=== PATIENT | male | born 1955 | race Two or more races ===

== ENCOUNTER 2018-09-02 23:19 | Inpatient (IN) | payer OTHER ==
[~2018-09-02] VITALS: Ht 182.9 cm; Wt 64.8 kg
[2018-09-02] MEDS ORDERED: NITROGLYCERIN/D5W PMX 250 ML IV PRN (23:42)
[2018-09-02] MEDS: PROPOFOL 100 ML IV PRN (23:50)
[2018-09-03] MEDS ORDERED: LORazepam 2 MG/ML, 1ML IVPush ONE
[2018-09-03] MEDS ORDERED: SODIUM CHLORIDE FLUSH 10ML SYR IVF ONE
[2018-09-03] MEDS ORDERED: SUCCINYLCHOLINE 20 MG/ML, 10ML IVPush ONE
[2018-09-03] MEDS ORDERED: ETOMIDATE 20 MG/10 ML IVPush ONE
--- NOTE | 2018-09-03 | NUR ---
Code cardiac called at 2352 medical laboratory technicians called in by code phone All cath team in route at [phone] Cardiology already aware of STEMI and Dr. Pino in route
[2018-09-03] MEDS ORDERED: ETOMIDATE 20 MG/10 ML ONE (00:01)
[2018-09-03] MEDS ORDERED: SUCCINYLCHOLINE 20 MG/ML, 10ML ONE (00:01)
[2018-09-03] MEDS ORDERED: MIDAZOLAM 1 MG/ML, 5ML ONE (00:01)
[2018-09-03] MEDS ORDERED: PROPOFOL 10 MG/ML, 100ML IV ONE (00:01)
[2018-09-03] MEDS ORDERED: HEPARIN 25,000 UNITS/500ML PMX 500 ML ONE (00:05)
[2018-09-03 00:08] LABS: MEAN CORPUSCULAR HEMOGLOBIN 31.6 pg (27.5-34.5); MEAN CORPUSCULAR HGB CONC 33.9 g/dL (33.2-36.2); MEAN CORPUSCULAR VOLUME 93.4 fL (81-97); MEAN PLATELET VOLUME 8.2 fL (7.4-10.4); RED BLOOD COUNT 4.06 x10^6/uL (4.38-5.82); RED CELL DISTRIBUTION WIDTH 13.6 % (9.4-14.8)
[2018-09-03 00:11] LABS: ALANINE AMINOTRANSFERASE 42 U/L (12-78); ALBUMIN 2.6 g/dL (3.4-5.0); ANION GAP 10 mmol/L (5-15); CALCIUM 7.7 mg/dL (8.5-10.1); CHLORIDE 106 mmol/L (98-107); CREATININE 1.86 mg/dL (0.7-1.3)
[2018-09-03 00:15] LABS: ALKALINE PHOSPHATASE 243 U/L (45-117); BILIRUBIN,TOTAL 0.2 mg/dL (0.2-1.0); PLATELET COUNT 1543 x10^3/uL (130-400); TOTAL PROTEIN 6.2 g/dL (6.4-8.2)
[2018-09-03] MEDS ORDERED: FENTANYL PF 100 MCG/2ML ONE (00:23)
[2018-09-03] MEDS ORDERED: MIDAZOLAM 1 MG/ML, 2ML ONE (00:23)
[2018-09-03] MEDS ORDERED: TICAGRELOR 90 MG TABLET ONE (00:23)
[2018-09-03] MEDS ORDERED: LIDOCAINE 1%, 20ML ONE (00:24)
[2018-09-03] MEDS ORDERED: BIVALIRUDIN 250 MG ONE ×2 (00:24→01:29)
[2018-09-03] MEDS: PROPOFOL 100 ML IV PRN ×2 (00:28→06:15)
[2018-09-03 00:31] LABS: MD YES
[2018-09-03 00:33] LABS: ANISOCYTOSIS 1+; EOS#(MANUAL) 0.42 x10^3/uL (0.0-0.4); EOS% (MANUAL) 3 % (1-7); LYMPH#(MANUAL) 3.95 x10^3/uL (1-3.4); LYMPHS% (MANUAL) 28 % (22-44); MONOS#(MANUAL) 0.85 x10^3/uL (0.3-2.7); MONOS% (MANUAL) 6 % (2-9); SEG#(MANUAL) 8.88 x10^3/uL (1.8-6.8); SEGS% (MANUAL) 63 % (42-75)
[2018-09-03 00:35] LABS: <PLATELET ESTIMATE> INCREASED; LARGE PLATELETS 1+
[2018-09-03] MEDS ORDERED: ONDANSETRON 2MG/ML, 2ML IVPush PRN (01:00)
[2018-09-03] MEDS ORDERED: LABETALOL 5MG/ML, 20ML IVPush PRN (01:00)
[2018-09-03] MEDS ORDERED: ACETAMINOPHEN 325 MG TABLET PO PRN (01:00)
[2018-09-03] MEDS ORDERED: hydrALAzine 20 MG/ML, 1ML IVPush PRN (01:00)
[2018-09-03] MEDS ORDERED: NITROGLYCERIN 0.4 MG BOTTLE (25 TABS) SL PRN (01:00)
[2018-09-03] MEDS ORDERED: morphine SULFATE 10 MG/ML, 1ML IVPush PRN (01:00)
[2018-09-03] MEDS ORDERED: ONDANSETRON ODT 4 MG PO PRN (01:00)
[2018-09-03] MEDS ORDERED: OXYcodone IR 5MG TABLET PO PRN (01:00)
[2018-09-03] MEDS ORDERED: POLYETHYLENE GLYCOL 17 GM PACKET PO PRN (01:00)
[2018-09-03] MEDS ORDERED: BISACODYL 10 MG SUPP PR PRN (01:00)
[2018-09-03] MEDS ORDERED: DOCUSATE 100 MG CAPSULE PO PRN (01:00)
[2018-09-03] MEDS ORDERED: MIDAZOLAM 1 MG/ML, 5ML IVPush ONE ×2 (01:00)
[2018-09-03] MEDS ORDERED: PROMETHAZINE 25 MG/ML, 1ML IM PRN (01:00)
--- NOTE | 2018-09-03 01:06 | NUR ---
LATE ENTRY: 2324: PT ARRIVED FROM [facility] FOR STEMI. ENROUTE, PT BECAME VERY ANXIOUS AND STATED HE COULD NOT BREATH. UPON ARRIVAL, PT IS PULLING AT MONITORS AND ROCKING BACK AND FORTH IN [facility]--ATTEMPTING TO CRAWL OUT OF [facility]. PT STATING MULTIPLE TIMES "JUST INTUBATE ME, I CAN'T BREATH". PT MEDICATED WITH ATIVAN PER ERP VERBAL ORDER. ERP AT BEDSIDE WITH US TO BORA. PRESENTS WITH NITRO DRIP INFUSING @ 50MCG/MIN. INTITIALLY HAD HEPARIN INFUSING WELL BUT IV BLEW SO PER ERP, HEPARIN TO BE HELD UNTIL FURTHER IV ACCESS CAN BE OBTAINED BUT NITRO NEEDS TO CONTINUE INFUSING--ERP REQUESTING TO INCREASE TO 75MCG/MIN. 2336: NITRO DRIP INCREASED PER ERP REQUEST--VERIFIED DOSE. 2340:PT REMAINS AGITATED. UNABLE TO OBTAIN ANY ASSESSMENT. RSI INTUBATION COMPLETED BY ERP. TUBE 24 @LIP. XRAY WAITING AT BEDSIDE. 2343: NITRO DRIP INCREASED PER ERP TO 100 MCG/MIN--VERIFIED DOSE WITH ERP PRIOR TO INCREASE. Addendum: 09/03/18 at 0118 by [facility] LATE ENTRY: 2324: PT ARRIVED FROM [facility] FOR STEMI. PT RECEIVED TNK AND HEPARIN MERCHANT MILLER. PER ERP AND DR LOPEZ, POC WAS TO REPEAT EKG UPON ARRIVAL TO ER AND ASSESS IF LAND ACQUISITION ANALYST IS NEEDED. NO CODE CARDIAC TO BE CALLED UPON INITIAL ARRIVAL. ENROUTE, PT BECAME VERY ANXIOUS AND STATED HE COULD NOT BREATH. UPON ARRIVAL IN ER, PT IS PULLING AT MONITORS AND ROCKING BACK AND FORTH IN [place]--ATTEMPTING TO CRAWL OUT OF [facility]. PT STATING MULTIPLE TIMES "JUST INTUBATE ME, I CAN'T BREATH". PT MEDICATED WITH ATIVAN PER ERP VERBAL ORDER. ERP AT BEDSIDE WITH US MACHINE TO BORA. PRESENTS WITH NITRO DRIP INFUSING @ 50MCG/MIN. INTITIALLY HAD HEPARIN INFUSING WELL BUT IV BLEW SO PER ERP, HEPARIN TO BE HELD UNTIL FURTHER IV ACCESS CAN BE OBTAINED BUT NITRO NEEDS TO CONTINUE INFUSING--ERP REQUESTING TO INCREASE TO 75MCG/MIN. 2336: NITRO DRIP INCREASED PER ERP REQUEST--VERIFIED DOSE. 2340:PT REMAINS AGITATED. UNABLE TO OBTAIN ANY ASSESSMENT. RSI INTUBATION COMPLETED BY ERP. TUBE 24 @LIP. XRAY WAITING AT BEDSIDE. AWAITING ORDERS FOR HEPARIN DRIP. 2343: NITRO DRIP INCREASED PER ERP TO 100 MCG/MIN--VERIFIED DOSE WITH ERP PRIOR TO INCREASE. 0010: ERP AWARE OF PT VS--NITRO DRIP DECREASED.
--- NOTE | 2018-09-03 01:13 | NUR ---
LATE ENTRY: 2352: CODE CARDIAC CALLED AND NOTIFIED. AWAITING TRANSFER TO AREA REPRESENTATIVE. PT BEING PREPPED PER PROTOCOLS. 0000: NG PLACED. CLOTHING REMOVED. UPPER AND LOWER DENTURES, PANTS, AND BELT GIVEN TO AT BEDSIDE. PT COUGHING AND FIGHTING VENT--ORDER FOR VERSED RECEIVED. 0025: AWAITING RESP THERAPIST FOR TRANSPORT TO AREA REPRESENTATIVE. 0040:PT TRANSFERRED TO AREA REPRESENTATIVE WITH RN, RESP, AND TECH ESCORT.
[2018-09-03] MEDS: BIVALIRUDIN 250 MG in DEXTROSE 5% 100 ML IV SCH ×2 (01:17→03:20)
[2018-09-03] MEDS ORDERED: MIDAZOLAM 1 MG/ML, 2ML IVPush ONE ×2 (01:30)
[2018-09-03 01:41] LABS: FREE T4 (FREE THYROXINE) 0.98 ng/dL (0.76-1.46); THYROID STIMULATING HORMONE 13.7 mIU/L (0.358-3.740)
[2018-09-03 01:45] LABS: INTERNATIONAL NORMALIZED RATIO 1.01 (0.93-1.1); PROTHROMBIN TIME 10.7 Seconds (9.6-11.5)
[2018-09-03 02:08] LABS: HEMOGLOBIN A1C 12.6 % (4.2-6.3)
[2018-09-03] MEDS ORDERED: DOPAMINE/D5W PMX 250 ML IV PRN (04:38)
[2018-09-03] MEDS ORDERED: PROPOFOL 100 ML IV PRN (04:38)
[2018-09-03 04:42] LABS: ALANINE AMINOTRANSFERASE 37 U/L (12-78); ALBUMIN 2.4 g/dL (3.4-5.0); ANION GAP 8 mmol/L (5-15); CALCIUM 8.1 mg/dL (8.5-10.1); CHLORIDE 109 mmol/L (98-107); CHOLESTEROL, TOTAL 169 mg/dL (140-239); CREATININE 1.84 mg/dL (0.7-1.3); MEAN CORPUSCULAR HEMOGLOBIN 31.8 pg (27.5-34.5); MEAN CORPUSCULAR HGB CONC 34.4 g/dL (33.2-36.2); MEAN CORPUSCULAR VOLUME 92.3 fL (81-97); MEAN PLATELET VOLUME 7.9 fL (7.4-10.4); RED BLOOD COUNT 3.82 x10^6/uL (4.38-5.82); RED CELL DISTRIBUTION WIDTH 13.5 % (9.4-14.8)
[2018-09-03 04:44] LABS: ALKALINE PHOSPHATASE 221 U/L (45-117); BILIRUBIN,TOTAL 0.4 mg/dL (0.2-1.0); CHOL/HDL RATIO 3.2; HDL CHOL % 31 % (26-37); HDL CHOLESTEROL (DIRECT) 53 mg/dL (40-60); LDL CHOLESTEROL,CALCULATED 96 mg/dL (54-169); LDL/HDL RATIO 1.8 (0.5-3.0); TOTAL PROTEIN 5.9 g/dL (6.4-8.2); TRIGLYCERIDES 101 mg/dL (50-200); VLDL CHOLESTEROL 20 mg/dL (0-25)
[2018-09-03] MEDS ORDERED: LACTULOSE 20 GM/30 ML UDC NG PRN (05:00)
[2018-09-03] MEDS ORDERED: SENNA/DOCUSATE TABLET NG PRN (05:00)
[2018-09-03] MEDS ORDERED: PHARMACY MAY ADJ FOR RENAL FX MC SCH (05:00)
[2018-09-03] MEDS ORDERED: LIDOCAINE-MPF 1%, 2ML ENDO PRN (05:00)
[2018-09-03] MEDS: ALBUTEROL/IPRATROPIUM 2.5MG/0.5MG, 3 ML INLINE SCH ×3 (05:00→13:41)
[2018-09-03] MEDS ORDERED: DEXTROSE 50%, 50ML SYRINGE IVPush PRN (05:00)
[2018-09-03] MEDS ORDERED: DEXTROSE 4 GM TAB.CHEW PO PRN (05:00)
[2018-09-03] MEDS ORDERED: FENTANYL PF 100 MCG/2ML IVPush PRN (05:00)
[2018-09-03] MEDS ORDERED: GLUCAGON 1 MG IM PRN (05:00)
[2018-09-03] MEDS ORDERED: SENNOSIDES 8.8 MG/5 ML ORAL SOL NG PRN (05:00)
[2018-09-03 05:14] LABS: PLATELET COUNT 1351 x10^3/uL (130-400)
[2018-09-03 05:24] LABS: TRIGLYCERIDES 101 mg/dL (50-200)
[2018-09-03 05:50] LABS: BASOPHILS # (AUTO) 0.05 x10^3/uL (0-0.1); BASOPHILS % (AUTO) 0 % (0-1); EOSINOPHILS # (AUTO) 0.18 x10^3/uL (0-0.4); EOSINOPHILS % (AUTO) 1 % (1-7); LYMPHOCYTES # (AUTO) 1.45 x10^3/uL (1-3.4); LYMPHOCYTES % (AUTO) 11 % (22-44); MD SCAN; MONOCYTES # (AUTO) 0.72 x10^3/uL (0.2-0.8); MONOCYTES % (AUTO) 6 % (2-9); NEUTROPHILS # (AUTO) 10.83 x10^3/uL (1.8-6.8); NEUTROPHILS % (AUTO) 82 % (42-75)
[2018-09-03] MEDS ORDERED: ASPIRIN 325 MG TABLET EC PO SCH (06:00)
[2018-09-03] MEDS: NICOTINE 7 MG/24 HR PATCH.TD24 TD SCH (06:29)
[2018-09-03] MEDS: INSULIN LISPRO 100 UNITS/ML, PEN SQ-INSULIN SCH ×4 (07:00→21:44)
[2018-09-03 07:49] VITALS: BP 118/68
[2018-09-03 08:40] LABS: MICROSCOPIC INDICATED
[2018-09-03] MEDS: ASPIRIN 81 MG TABLET EC PO SCH (08:53)
[2018-09-03] MEDS: SODIUM CHLORIDE FLUSH 10ML SYR IVF SCH ×2 (08:54→21:31)
[2018-09-03] MEDS: TICAGRELOR 90 MG TABLET PO SCH ×2 (08:54→21:31)
[2018-09-03 08:55] LABS: CULTURE INDICATED? NO
[2018-09-03] MEDS ORDERED: BUDESONIDE 0.5 MG/2 ML INHA NPPB SCH (09:15)
--- NOTE | 2018-09-03 12:05 | NUR ---
TF GOAL: w/ propofol: PROMOTE @ 65ML/HR off propofol: PROMOTE @ 75ML/HR
[2018-09-03] MEDS ORDERED: ALBUTEROL/IPRATROPIUM 2.5MG/0.5MG, 3 ML NPPB PRN (17:30)
[2018-09-04] MEDS: NICOTINE 7 MG/24 HR PATCH.TD24 TD SCH (01:09)
[2018-09-04 04:00] VITALS: BP 143/78
[2018-09-04 04:38] LABS: ALBUMIN 2.2 g/dL (3.4-5.0); ANION GAP 6 mmol/L (5-15); CALCIUM 8.4 mg/dL (8.5-10.1); CHLORIDE 111 mmol/L (98-107)
[2018-09-04 04:40] LABS: MEAN CORPUSCULAR HEMOGLOBIN 31.6 pg (27.5-34.5); MEAN CORPUSCULAR HGB CONC 33.7 g/dL (33.2-36.2); MEAN CORPUSCULAR VOLUME 93.9 fL (81-97); RED BLOOD COUNT 4.06 x10^6/uL (4.38-5.82); RED CELL DISTRIBUTION WIDTH 13.6 % (9.4-14.8)
[2018-09-04 04:42] LABS: ALANINE AMINOTRANSFERASE 24 U/L (12-78); ALKALINE PHOSPHATASE 197 U/L (45-117); BILIRUBIN,TOTAL 0.4 mg/dL (0.2-1.0); CREATININE 1.69 mg/dL (0.7-1.3); TOTAL PROTEIN 5.6 g/dL (6.4-8.2)
[2018-09-04 05:22] LABS: PLATELET COUNT 1058 x10^3/uL (130-400)
[2018-09-04 05:23] LABS: BASOPHILS # (AUTO) 0.03 x10^3/uL (0-0.1); BASOPHILS % (AUTO) 0 % (0-1); EOSINOPHILS # (AUTO) 0.37 x10^3/uL (0-0.4); EOSINOPHILS % (AUTO) 3 % (1-7); LYMPHOCYTES # (AUTO) 0.78 x10^3/uL (1-3.4); LYMPHOCYTES % (AUTO) 7 % (22-44); MD SCAN; MONOCYTES # (AUTO) 0.59 x10^3/uL (0.2-0.8); MONOCYTES % (AUTO) 5 % (2-9); NEUTROPHILS # (AUTO) 9.46 x10^3/uL (1.8-6.8); NEUTROPHILS % (AUTO) 84 % (42-75)
[2018-09-04] MEDS: INSULIN LISPRO 100 UNITS/ML, PEN SQ-INSULIN SCH ×4 (06:00→21:24)
[2018-09-04] MEDS: BUDESONIDE 0.5 MG/2 ML INHA NPPB SCH ×2 (09:05→20:30)
[2018-09-04] MEDS: ASPIRIN 81 MG TABLET EC PO SCH (09:14)
[2018-09-04] MEDS: TICAGRELOR 90 MG TABLET PO SCH ×2 (09:14→21:24)
[2018-09-04] MEDS: AMPICILLIN/SULBACTAM 3 GM in SODIUM CHLORIDE 0.9% 100 ML IV SCH ×3 (09:15→21:25)
[2018-09-04] MEDS: SODIUM CHLORIDE FLUSH 10ML SYR IVF SCH ×2 (09:15→21:25)
[2018-09-04] MEDS ORDERED: FUROSEMIDE 20 MG/2 ML ONE (09:54)
[2018-09-04] MEDS ORDERED: FUROSEMIDE 20 MG/2 ML IV ONE (10:00)
[2018-09-04] MEDS: LEVOTHYROXINE 50 MCG TABLET PO SCH (10:01)
[2018-09-04 13:25] VITALS: BP 167/52
[2018-09-04 21:11] VITALS: BP 166/82
[2018-09-04] MEDS: ATORVASTATIN 80 MG TABLET PO SCH (21:24)
[2018-09-05 03:23] VITALS: BP 151/74
[2018-09-05] MEDS: AMPICILLIN/SULBACTAM 3 GM in SODIUM CHLORIDE 0.9% 100 ML IV SCH ×2 (03:25→09:16)
[2018-09-05] MEDS: NICOTINE 7 MG/24 HR PATCH.TD24 TD SCH (03:25)
[2018-09-05] MEDS: LEVOTHYROXINE 50 MCG TABLET PO SCH (06:03)
[2018-09-05] MEDS: INSULIN LISPRO 100 UNITS/ML, PEN SQ-INSULIN SCH ×4 (06:04→21:34)
[2018-09-05 06:59] LABS: MEAN CORPUSCULAR HEMOGLOBIN 31.8 pg (27.5-34.5); MEAN CORPUSCULAR HGB CONC 33.7 g/dL (33.2-36.2); MEAN CORPUSCULAR VOLUME 94.3 fL (81-97); MEAN PLATELET VOLUME 8.2 fL (7.4-10.4); RED BLOOD COUNT 4.07 x10^6/uL (4.38-5.82); RED CELL DISTRIBUTION WIDTH 13.6 % (9.4-14.8)
[2018-09-05 07:05] LABS: ANION GAP 7 mmol/L (5-15); CALCIUM 7.7 mg/dL (8.5-10.1); CHLORIDE 109 mmol/L (98-107)
[2018-09-05 07:12] LABS: CREATININE 1.92 mg/dL (0.7-1.3)
[2018-09-05 07:26] VITALS: BP 153/74
[2018-09-05 07:29] LABS: PLATELET COUNT 1137 x10^3/uL (130-400)
[2018-09-05 07:48] LABS: BASOPHILS # (AUTO) 0.02 x10^3/uL (0-0.1); BASOPHILS % (AUTO) 0 % (0-1); EOSINOPHILS # (AUTO) 0.77 x10^3/uL (0-0.4); EOSINOPHILS % (AUTO) 8 % (1-7); LYMPHOCYTES # (AUTO) 0.72 x10^3/uL (1-3.4); LYMPHOCYTES % (AUTO) 7 % (22-44); MD SCAN; MONOCYTES # (AUTO) 0.61 x10^3/uL (0.2-0.8); MONOCYTES % (AUTO) 6 % (2-9); NEUTROPHILS # (AUTO) 7.76 x10^3/uL (1.8-6.8); NEUTROPHILS % (AUTO) 79 % (42-75)
[2018-09-05] MEDS: BUDESONIDE 0.5 MG/2 ML INHA NPPB SCH ×2 (09:00→23:14)
[2018-09-05] MEDS: ASPIRIN 81 MG TABLET EC PO SCH (09:16)
[2018-09-05] MEDS: TICAGRELOR 90 MG TABLET PO SCH ×2 (09:16→21:34)
[2018-09-05] MEDS: SODIUM CHLORIDE FLUSH 10ML SYR IVF SCH ×2 (09:16→21:33)
[2018-09-05] MEDS: CARVEDILOL 3.125 MG TABLET PO SCH ×2 (09:18→18:02)
[2018-09-05] MEDS ORDERED: muscle relaxer PO (13:06)
[2018-09-05] MEDS ORDERED: IBUP200C8 PO (13:06)
[2018-09-05] MEDS ORDERED: ASPI-650 PO (13:06)
[2018-09-05] MEDS ORDERED: unknown BP med PO (13:06)
[2018-09-05] MEDS ORDERED: INSU100V8 SQ (13:06)
[2018-09-05] MEDS: CEFTRIAXONE PMX 2GM/50ML 50 ML IV SCH (13:23)
[2018-09-05] MEDS: DOXYCYCLINE 100 MG in DEXTROSE 5% 250 ML IV SCH (14:22)
[2018-09-05] MEDS: HEPARIN 5,000 UNITS/ML, 1ML SQ SCH ×2 (14:30→21:33)
[2018-09-05 14:47] VITALS: BP 146/74
[2018-09-05 19:13] VITALS: BP 170/85
[2018-09-05] MEDS: INSULIN GLARGINE 100 UNITS/ML, PEN SQ-INSULIN SCH (21:34)
[2018-09-05] MEDS: ATORVASTATIN 80 MG TABLET PO SCH (21:34)
[2018-09-06] VITALS (7 sets, daily range): BP systolic 129–186; BP diastolic 61–99
[2018-09-06] MEDS: NICOTINE 7 MG/24 HR PATCH.TD24 TD SCH (02:49)
[2018-09-06] MEDS: DOXYCYCLINE 100 MG in DEXTROSE 5% 250 ML IV SCH ×2 (02:49→14:35)
[2018-09-06 05:23] LABS: MEAN CORPUSCULAR HEMOGLOBIN 31.7 pg (27.5-34.5); MEAN CORPUSCULAR VOLUME 93.1 fL (81-97); RED BLOOD COUNT 4.05 x10^6/uL (4.38-5.82); RED CELL DISTRIBUTION WIDTH 13.2 % (9.4-14.8)
[2018-09-06 05:25] LABS: PLATELET COUNT 1247 x10^3/uL (130-400)
[2018-09-06 05:36] LABS: ANION GAP 6 mmol/L (5-15); CALCIUM 7.8 mg/dL (8.5-10.1); CHLORIDE 109 mmol/L (98-107); CREATININE 1.66 mg/dL (0.7-1.3); TRIGLYCERIDES 104 mg/dL (50-200)
[2018-09-06 05:46] LABS: BASOPHILS # (AUTO) 0.04 x10^3/uL (0-0.1); BASOPHILS % (AUTO) 1 % (0-1); EOSINOPHILS # (AUTO) 0.59 x10^3/uL (0-0.4); EOSINOPHILS % (AUTO) 6 % (1-7); LYMPHOCYTES # (AUTO) 0.89 x10^3/uL (1-3.4); LYMPHOCYTES % (AUTO) 9 % (22-44); MD SCAN; MONOCYTES % (AUTO) 7 % (2-9); NEUTROPHILS # (AUTO) 7.42 x10^3/uL (1.8-6.8); NEUTROPHILS % (AUTO) 77 % (42-75)
[2018-09-06] MEDS: INSULIN LISPRO 100 UNITS/ML, PEN SQ-INSULIN SCH ×4 (06:00→21:08)
[2018-09-06] MEDS: LEVOTHYROXINE 50 MCG TABLET PO SCH (06:31)
[2018-09-06] MEDS: CARVEDILOL 3.125 MG TABLET PO SCH (06:31)
[2018-09-06] MEDS: HEPARIN 5,000 UNITS/ML, 1ML SQ SCH ×3 (06:34→21:09)
[2018-09-06] MEDS: TICAGRELOR 90 MG TABLET PO SCH ×2 (09:00→21:08)
[2018-09-06] MEDS: SODIUM CHLORIDE FLUSH 10ML SYR IVF SCH ×2 (09:00→21:08)
[2018-09-06] MEDS ORDERED: FUROSEMIDE 40 MG/4 ML IV ONE (09:30)
[2018-09-06] MEDS: CARVEDILOL 6.25 MG TABLET PO SCH ×2 (09:30→17:05)
[2018-09-06] MEDS: ASPIRIN 81 MG TABLET EC PO SCH (09:34)
[2018-09-06] MEDS: LISINOPRIL 5 MG TABLET PO SCH (09:53)
[2018-09-06] MEDS: SPIRONOLACTONE 25 MG TABLET PO SCH (09:54)
[2018-09-06] MEDS: CEFTRIAXONE PMX 2GM/50ML 50 ML IV SCH (12:55)
[2018-09-06] MEDS: BUDESONIDE 0.5 MG/2 ML INHA NPPB SCH ×2 (14:30→21:00)
[2018-09-06] MEDS: ATORVASTATIN 80 MG TABLET PO SCH (21:08)
[2018-09-06] MEDS: INSULIN GLARGINE 100 UNITS/ML, PEN SQ-INSULIN SCH (21:09)
[2018-09-07 01:25] VITALS: BP 132/70
[2018-09-07] MEDS: NICOTINE 7 MG/24 HR PATCH.TD24 TD SCH (03:11)
[2018-09-07] MEDS: DOXYCYCLINE 100 MG in DEXTROSE 5% 250 ML IV SCH ×2 (03:11→14:00)
[2018-09-07 06:20] LABS: MEAN CORPUSCULAR HEMOGLOBIN 31.5 pg (27.5-34.5); MEAN CORPUSCULAR HGB CONC 33.6 g/dL (33.2-36.2); MEAN CORPUSCULAR VOLUME 93.8 fL (81-97); MEAN PLATELET VOLUME 7.8 fL (7.4-10.4); RED BLOOD COUNT 4.17 x10^6/uL (4.38-5.82); RED CELL DISTRIBUTION WIDTH 13.4 % (9.4-14.8)
[2018-09-07 06:22] LABS: PLATELET COUNT 1316 x10^3/uL (130-400)
[2018-09-07 06:30] LABS: ANION GAP 7 mmol/L (5-15); CALCIUM 8.1 mg/dL (8.5-10.1); CHLORIDE 108 mmol/L (98-107)
[2018-09-07] MEDS: CARVEDILOL 6.25 MG TABLET PO SCH ×2 (06:40→18:16)
[2018-09-07] MEDS: LEVOTHYROXINE 50 MCG TABLET PO SCH (06:40)
[2018-09-07] MEDS: HEPARIN 5,000 UNITS/ML, 1ML SQ SCH ×3 (06:40→22:41)
[2018-09-07] MEDS: INSULIN LISPRO 100 UNITS/ML, PEN SQ-INSULIN SCH ×4 (06:46→21:00)
[2018-09-07 06:51] VITALS: BP_SYST 146; BP_SYST 159; BP_DIAS 76; BP_DIAS 81
[2018-09-07 07:40] LABS: BASOPHILS # (AUTO) 0.04 x10^3/uL (0-0.1); BASOPHILS % (AUTO) 0 % (0-1); EOSINOPHILS # (AUTO) 0.73 x10^3/uL (0-0.4); EOSINOPHILS % (AUTO) 6 % (1-7); LYMPHOCYTES # (AUTO) 0.87 x10^3/uL (1-3.4); LYMPHOCYTES % (AUTO) 8 % (22-44); MD SCAN; MONOCYTES # (AUTO) 0.67 x10^3/uL (0.2-0.8); MONOCYTES % (AUTO) 6 % (2-9); NEUTROPHILS # (AUTO) 9.18 x10^3/uL (1.8-6.8); NEUTROPHILS % (AUTO) 80 % (42-75)
[2018-09-07] MEDS: BUDESONIDE 0.5 MG/2 ML INHA NPPB SCH ×2 (07:46→20:45)
[2018-09-07] MEDS: ASPIRIN 81 MG TABLET EC PO SCH (08:30)
[2018-09-07] MEDS: SPIRONOLACTONE 25 MG TABLET PO SCH (08:30)
[2018-09-07] MEDS: LISINOPRIL 5 MG TABLET PO SCH (08:30)
[2018-09-07] MEDS: SODIUM CHLORIDE FLUSH 10ML SYR IVF SCH ×2 (08:30→22:42)
[2018-09-07] MEDS: TICAGRELOR 90 MG TABLET PO SCH ×2 (10:44→22:41)
[2018-09-07] MEDS: POTASSIUM CHLORIDE 10 MEQ TABLET.ER PO SCH (10:44)
[2018-09-07] MEDS: FUROSEMIDE 40 MG TABLET PO SCH (10:44)
[2018-09-07 12:45] VITALS: BP 161/76
[2018-09-07] MEDS: CEFTRIAXONE PMX 2GM/50ML 50 ML IV SCH (13:16)
[2018-09-07 20:46] VITALS: BP 137/72
[2018-09-07] MEDS: ATORVASTATIN 80 MG TABLET PO SCH (22:41)
[2018-09-08] MEDS ORDERED: INSULIN LISPRO 100 UNITS/ML, PEN SQ-INSULIN SCH (00:30)
[2018-09-08] MEDS: INSULIN GLARGINE 100 UNITS/ML, PEN SQ-INSULIN SCH (00:34)
[2018-09-08] MEDS: DOXYCYCLINE 100 MG in DEXTROSE 5% 250 ML IV SCH ×2 (01:09→14:25)
[2018-09-08] MEDS: NICOTINE 7 MG/24 HR PATCH.TD24 TD SCH (01:09)
[2018-09-08 04:54] VITALS: BP 153/69
[2018-09-08] MEDS: INSULIN LISPRO 100 UNITS/ML, PEN SQ-INSULIN SCH ×3 (06:00→16:00)
[2018-09-08 06:02] LABS: MEAN CORPUSCULAR HEMOGLOBIN 31.3 pg (27.5-34.5); MEAN CORPUSCULAR HGB CONC 33.7 g/dL (33.2-36.2); MEAN CORPUSCULAR VOLUME 92.9 fL (81-97); RED BLOOD COUNT 4.21 x10^6/uL (4.38-5.82); RED CELL DISTRIBUTION WIDTH 13.3 % (9.4-14.8)
[2018-09-08 06:04] LABS: PLATELET COUNT 1325 x10^3/uL (130-400)
[2018-09-08 06:14] LABS: ANION GAP 9 mmol/L (5-15); CALCIUM 8.3 mg/dL (8.5-10.1); CHLORIDE 109 mmol/L (98-107); CREATININE 1.86 mg/dL (0.7-1.3)
[2018-09-08] MEDS: HEPARIN 5,000 UNITS/ML, 1ML SQ SCH ×2 (06:21→14:25)
[2018-09-08] MEDS: LEVOTHYROXINE 50 MCG TABLET PO SCH (06:22)
[2018-09-08] MEDS: CARVEDILOL 6.25 MG TABLET PO SCH (06:22)
[2018-09-08 06:28] LABS: BASOPHILS # (AUTO) 0.06 x10^3/uL (0-0.1); BASOPHILS % (AUTO) 1 % (0-1); EOSINOPHILS # (AUTO) 0.88 x10^3/uL (0-0.4); EOSINOPHILS % (AUTO) 9 % (1-7); LYMPHOCYTES # (AUTO) 1.52 x10^3/uL (1-3.4); LYMPHOCYTES % (AUTO) 15 % (22-44); MD SCAN; MONOCYTES # (AUTO) 0.85 x10^3/uL (0.2-0.8); MONOCYTES % (AUTO) 8 % (2-9); NEUTROPHILS # (AUTO) 6.99 x10^3/uL (1.8-6.8); NEUTROPHILS % (AUTO) 68 % (42-75)
[2018-09-08 07:24] VITALS: BP 141/69
[2018-09-08] MEDS: POTASSIUM CHLORIDE 10 MEQ TABLET.ER PO SCH (08:49)
[2018-09-08] MEDS: FUROSEMIDE 40 MG TABLET PO SCH (08:50)
[2018-09-08] MEDS: LISINOPRIL 5 MG TABLET PO SCH (08:50)
[2018-09-08] MEDS: SPIRONOLACTONE 25 MG TABLET PO SCH (08:50)
[2018-09-08] MEDS: ASPIRIN 81 MG TABLET EC PO SCH (08:50)
[2018-09-08] MEDS: SODIUM CHLORIDE FLUSH 10ML SYR IVF SCH (08:53)
[2018-09-08] MEDS: TICAGRELOR 90 MG TABLET PO SCH (08:57)
[2018-09-08] MEDS: BUDESONIDE 0.5 MG/2 ML INHA NPPB SCH (09:00)
[2018-09-08] MEDS ORDERED: PRASUGREL 10 MG TABLET PO ONE (10:30)
[2018-09-08 12:34] VITALS: BP 136/75
[2018-09-08] MEDS: CEFTRIAXONE PMX 2GM/50ML 50 ML IV SCH (13:33)
[2018-09-08] MEDS ORDERED: PRAS10TA4 PO (15:09)
[2018-09-08] MEDS ORDERED: CARV6.2512 PO (15:09)
[2018-09-08] MEDS ORDERED: DOXY100T10 PO (15:09)
[2018-09-08] MEDS ORDERED: FURO40TA6 PO (15:09)
[2018-09-08] MEDS ORDERED: ASPI81TA45 PO (15:09)
[2018-09-08] MEDS ORDERED: INSU100I13 SQ ×2 (15:09)
[2018-09-08] MEDS ORDERED: CEFD300C37 PO (15:09)
[2018-09-08] MEDS ORDERED: LEVO25TA2 PO (15:09)
[2018-09-08] MEDS ORDERED: LISI5TAB7 PO (15:09)
[2018-09-08] MEDS ORDERED: IPRA4AER INH ×2 (15:09)
[2018-09-08] MEDS ORDERED: INSU100C SQ-INSULIN (15:09)
[2018-09-08] MEDS ORDERED: POTA10TA5 PO (15:09)
[2018-09-08] MEDS ORDERED: SPIR25TA PO (15:09)
[2018-09-08] MEDS ORDERED: ATOR-2 PO (15:09)
[2018-09-08] MEDS ORDERED: IPRA3AMP30 NPPB (15:48)
[2018-09-08] MEDS ORDERED: INSU100I28 SQ (15:48)
[2018-09-08] MEDS ORDERED: INSULIN GLARGINE 100 UNITS/ML, PEN SQ-INSULIN SCH (21:00)
[2018-09-09] MEDS ORDERED: PRASUGREL 10 MG TABLET PO SCH (09:00)
== END 2018-09-08 17:28 | disposition home or self-care (01) | DRG 853 ==
LOC: ED 09-03 → EDIP 09-03 00:29 → ICU 09-03 01:41 → 5SO 09-04 11:59 → DCLOUNGE 09-08 17:05
PROVIDERS: ADMIT Internal Medicine; ATTEND Internal Medicine
PROC: 5A1935Z Respiratory Ventilation, Less than 24 Consecutive Hours (ICD-10-PCS; 2018-09-02)
PROC: 0BH17EZ Insertion of Endotracheal Airway into Trachea, Via Natural or Artificial Opening (ICD-10-PCS; 2018-09-02)
PROC: 027035Z Dilation of Coronary Artery, One Artery with Two Drug-eluting Intraluminal Devices, Percutaneous Approach (ICD-10-PCS; principal; 2018-09-03)
PROC: 4A023N7 Measurement of Cardiac Sampling and Pressure, Left Heart, Percutaneous Approach (ICD-10-PCS; 2018-09-03)
PROC: B2111ZZ Fluoroscopy of Multiple Coronary Arteries using Low Osmolar Contrast (ICD-10-PCS; 2018-09-03)
PROC: 0T9B70Z Drainage of Bladder with Drainage Device, Via Natural or Artificial Opening (ICD-10-PCS; 2018-09-03)
DX: A41.9 Sepsis, unspecified organism (principal); I21.09 ST elevation (STEMI) myocardial infarction involving other coronary artery of anterior wall; I50.21 Acute systolic (congestive) heart failure; J96.01 Acute respiratory failure with hypoxia; J96.02 Acute respiratory failure with hypercapnia; N17.0 Acute kidney failure with tubular necrosis; R57.0 Cardiogenic shock; J15.0 Pneumonia due to Klebsiella pneumoniae; E44.0 Moderate protein-calorie malnutrition; I13.0 Hypertensive heart and chronic kidney disease with heart failure and stage 1 through stage 4 chronic kidney disease, or unspecified chronic kidney disease; I16.9 Hypertensive crisis, unspecified; J44.0 Chronic obstructive pulmonary disease with (acute) lower respiratory infection; Z99.11 Dependence on respirator [ventilator] status; Z68.1 Body mass index [BMI] 19.9 or less, adult; D69.6 Thrombocytopenia, unspecified; E03.9 Hypothyroidism, unspecified; E11.22 Type 2 diabetes mellitus with diabetic chronic kidney disease; E11.51 Type 2 diabetes mellitus with diabetic peripheral angiopathy without gangrene; E11.65 Type 2 diabetes mellitus with hyperglycemia; E78.00 Pure hypercholesterolemia, unspecified; E78.5 Hyperlipidemia, unspecified; F17.210 Nicotine dependence, cigarettes, uncomplicated; I25.10 Atherosclerotic heart disease of native coronary artery without angina pectoris; I25.5 Ischemic cardiomyopathy; N18.9 Chronic kidney disease, unspecified; I25.2 Old myocardial infarction; Z83.3 Family history of diabetes mellitus; Z86.73 Personal history of transient ischemic attack (TIA), and cerebral infarction without residual deficits; Z95.5 Presence of coronary angioplasty implant and graft; Z79.899 Other long term (current) drug therapy; Z92.82 Status post administration of tPA (rtPA) in a different facility within the last 24 hours prior to admission to current facility
CPT/HCPCS: 31500; 36415; 36600; 93454; 99291; 99292; J7620; J7626; 0399T; 71045; 80048; 80053; 80061; 81001; 82803; 82947; 82962; 83036; 83605; 83735; 83880; 84439; 84443; 84478; 84484; 85025; 85610; 85730; 87070; 87077; 87081; 87186; 87205; 90656; 93005; 93306; 94002; 94003; 94640; 96374; C1769; C1894; G0378; J0295; J0583; J0696; J1644; J1940; J2250; J2704; J3010; J3490; J7060; Q0162; C1725; C1874; C1887; J0330; J0360; J1815; J2060; Q9967

== ENCOUNTER 2019-01-05 00:10 | Inpatient (IN) | payer MEDICARE, OTHER ==
[2019-01-05] VITALS (7 sets, daily range): BP systolic 131–175; BP diastolic 63–86
[~2019-01-05] VITALS: Ht 177.8 cm; Wt 63.0 kg
[~2019-01-05 00:10] MED LIST: ASPI-650 PO; ASPI81TA45 PO; ATOR-2 PO; CARV6.2512 PO; CEFD300C37 PO; DOXY100T10 PO; FURO20TA3 PO; FURO40TA6 PO; HYDR500C PO; IBUP200C8 PO; INSU100C SQ-INSULIN; INSU100I13 SQ; INSU100I28 SQ; INSU100V8 SQ; IPRA3AMP30 NPPB; IPRA4AER INH; LEVO25TA2 PO; LISI5TAB7 PO; POTA10TA5 PO; PRAS10TA4 PO; SPIR25TA PO; muscle relaxer PO; unknown BP med PO
[2019-01-05] MEDS ORDERED: NITROGLYCERIN 5 MG/ML, 10ML ONE (00:27)
[2019-01-05] MEDS ORDERED: FENTANYL PF 250 MCG/5ML ONE (00:27)
[2019-01-05] MEDS ORDERED: BIVALIRUDIN 250 MG ONE (00:27)
[2019-01-05] MEDS ORDERED: MIDAZOLAM 1 MG/ML, 5ML ONE (00:27)
[2019-01-05] MEDS ORDERED: LIDOCAINE 1%, 20ML ONE (00:27)
--- NOTE | 2019-01-05 00:28 | NUR ---
NTG UP TO 60MCG PER NOW BP 164/[address] FERRER PT SIGNED CONSENT FOR HEART CATH ERP AT BED SIDE PT IS AAOX4 ABLE TO TALK DENIED CHEST PAIN
[2019-01-05 00:29] LABS: BASOPHILS # (AUTO) 0.08 x10^3/uL (0-0.1); BASOPHILS % (AUTO) 1 % (0-1); EOSINOPHILS # (AUTO) 0.47 x10^3/uL (0-0.4); EOSINOPHILS % (AUTO) 7 % (1-7); LYMPHOCYTES # (AUTO) 2.02 x10^3/uL (1-3.4); LYMPHOCYTES % (AUTO) 29 % (22-44); MD NO; MEAN CORPUSCULAR HEMOGLOBIN 35.5 pg (27.5-34.5); MEAN CORPUSCULAR HGB CONC 33.2 g/dL (33.2-36.2); MEAN CORPUSCULAR VOLUME 107.1 fL (81-97); MEAN PLATELET VOLUME 7.6 fL (7.4-10.4); MONOCYTES # (AUTO) 0.48 x10^3/uL (0.2-0.8); MONOCYTES % (AUTO) 7 % (2-9); NEUTROPHILS # (AUTO) 3.89 x10^3/uL (1.8-6.8); NEUTROPHILS % (AUTO) 56 % (42-75); PLATELET COUNT 648 x10^3/uL (130-400); RED BLOOD COUNT 2.66 x10^6/uL (4.38-5.82); RED CELL DISTRIBUTION WIDTH 15.7 % (9.4-14.8)
--- NOTE | 2019-01-05 00:29 | NUR ---
ELISABET [phone]
--- NOTE | 2019-01-05 00:32 | NUR ---
CODE CARDIAC CALLED @2354 CARDS P @ 2350 FRONT END LOADER DRIVER CALLED IN @ 2356 CALLED BACK @ 0000 CODE CARDIAC CANCEL @ 0030
--- NOTE | 2019-01-05 00:34 | NUR ---
1230 CODE CARDIAC WAS CANCELLED BY DR LOPEZ BY THE PHONE PER DR FERRER ERP PT IS RESTING DENIED PAIN AT THIS TIME
[2019-01-05 00:35] LABS: INTERNATIONAL NORMALIZED RATIO 0.91 (0.93-1.1); PROTHROMBIN TIME 9.6 Seconds (9.6-11.5)
--- NOTE | 2019-01-05 00:41 | NUR ---
CALLED AND UPDATED HOME MEDICATION
[2019-01-05 00:42] LABS: TROPONIN I 0.033 ng/mL (0.000-0.045)
[2019-01-05] MEDS ORDERED: HEPARIN 25,000 UNITS/500ML PMX 500 ML ONE (00:53)
[2019-01-05] MEDS ORDERED: HEPARIN 5,000 UNITS/ML, 1ML ONE (00:53)
[2019-01-05] MEDS ORDERED: HEPARIN 5,000 UNITS/ML, 1ML IV ONE (01:00)
[2019-01-05] MEDS ORDERED: NITROGLYCERIN/D5W PMX 250 ML IV PRN ×2 (01:00→02:00)
[2019-01-05] MEDS ORDERED: HEPARIN 25,000 UNITS/500ML PMX 500 ML IV PRN (01:00)
--- NOTE | 2019-01-05 01:10 | NUR ---
ITS OK TO START HEP GTT W/O ANTI XA RESULT PER ERP BIAGE
[2019-01-05] MEDS ORDERED: LACTATED RINGERS 1,000 ML IV SCH (02:00)
[2019-01-05] MEDS ORDERED: ACETAMINOPHEN 325 MG TABLET PO PRN (02:00)
[2019-01-05] MEDS ORDERED: ONDANSETRON 2MG/ML, 2ML IVPush PRN (02:00)
[2019-01-05] MEDS ORDERED: morphine SULFATE 10 MG/ML, 1ML IVPush PRN (02:00)
--- NOTE | 2019-01-05 02:06 | NUR ---
DR OCHOA AT BED SIDE FOR ADMIT EVAL NTG WILL BE CONTINUED KEEP SBP <140'S CURRENT NTG RATE IF 30MCG NOW PT IS RESTING HEP GTT IS INFUSING WEAK LEG PULSE REPORTED TO [facility] AND [facility] M[facility] WIRER GIVEN REPORT TO [facility] NOW
[2019-01-05] MEDS ORDERED: HEPARIN 5,000 UNITS/ML, 1ML IV PRN (03:00)
[2019-01-05 03:06] LABS: HEMOGLOBIN A1C 10.3 % (4.2-6.3)
[2019-01-05] MEDS: INSULIN LISPRO 100 UNITS/ML, PEN SQ-INSULIN SCH ×5 (04:30→20:56)
[2019-01-05 04:41] LABS: CHOL/HDL RATIO 4.1; LDL/HDL RATIO 2.7 (0.5-3.0)
[2019-01-05 04:42] LABS: ALANINE AMINOTRANSFERASE 17 U/L (12-78); ALBUMIN 2.1 g/dL (3.4-5.0); ANION GAP 5 mmol/L (5-15); CALCIUM 7.9 mg/dL (8.5-10.1); CHLORIDE 112 mmol/L (98-107); CREATININE 1.79 mg/dL (0.7-1.3)
[2019-01-05 04:46] LABS: ALKALINE PHOSPHATASE 110 U/L (45-117); TOTAL PROTEIN 5.3 g/dL (6.4-8.2); TROPONIN I 0.038 ng/mL (0.000-0.045)
[2019-01-05 04:47] LABS: BILIRUBIN,TOTAL < 0.1 mg/dL (0.2-1.0)
[2019-01-05] MEDS ORDERED: CARVEDILOL 6.25 MG TABLET PO SCH (06:00)
[2019-01-05] MEDS: LEVOTHYROXINE 25 MCG TABLET PO SCH (06:15)
[2019-01-05 06:43] LABS: CULTURE INDICATED? NO; MICROSCOPIC AUTO
[2019-01-05] MEDS: PRASUGREL 10 MG TABLET PO SCH (09:10)
[2019-01-05] MEDS: SENNA/DOCUSATE TABLET PO SCH (09:11)
[2019-01-05] MEDS: HYDROXYUREA 500 MG CAPSULE PO SCH (09:13)
[2019-01-05] MEDS ORDERED: LABETALOL 5 MG/ML SYRINGE IVPush PRN (10:00)
[2019-01-05 10:38] LABS: TROPONIN I 0.027 ng/mL (0.000-0.045)
[2019-01-05] MEDS ORDERED: NITROGLYCERIN/D5W PMX 250 ML ONE (10:42)
[2019-01-05] MEDS: AMLODIPINE 5 MG TABLET PO SCH (10:48)
[2019-01-05] MEDS: LISINOPRIL 5 MG TABLET PO SCH (10:48)
[2019-01-05] MEDS: HEPARIN 5,000 UNITS/ML, 1ML SQ SCH ×2 (11:18→17:34)
[2019-01-05] MEDS: hydrALAzine 20 MG/ML, 1ML IV PRN ×2 (16:28→22:22)
[2019-01-05] MEDS: CARVEDILOL 12.5 MG TABLET PO SCH (17:34)
[2019-01-05] MEDS: INSULIN GLARGINE 100 UNITS/ML, PEN SQ-INSULIN SCH (20:55)
[2019-01-05] MEDS: ATORVASTATIN 80 MG TABLET PO SCH (20:56)
[2019-01-06 00:15] VITALS: BP 170/70
[2019-01-06] MEDS: HEPARIN 5,000 UNITS/ML, 1ML SQ SCH ×3 (01:20→16:53)
[2019-01-06] MEDS ORDERED: NITROGLYCERIN/D5W PMX 250 ML IV PRN (02:00)
[2019-01-06 05:31] LABS: BASOPHILS # (AUTO) 0.05 x10^3/uL (0-0.1); BASOPHILS % (AUTO) 1 % (0-1); EOSINOPHILS # (AUTO) 0.31 x10^3/uL (0-0.4); EOSINOPHILS % (AUTO) 4 % (1-7); LYMPHOCYTES # (AUTO) 1.43 x10^3/uL (1-3.4); LYMPHOCYTES % (AUTO) 18 % (22-44); MD NO; MEAN CORPUSCULAR HEMOGLOBIN 35.2 pg (27.5-34.5); MEAN CORPUSCULAR HGB CONC 33.1 g/dL (33.2-36.2); MEAN CORPUSCULAR VOLUME 106.3 fL (81-97); MEAN PLATELET VOLUME 7.7 fL (7.4-10.4); MONOCYTES # (AUTO) 0.39 x10^3/uL (0.2-0.8); MONOCYTES % (AUTO) 5 % (2-9); NEUTROPHILS # (AUTO) 5.76 x10^3/uL (1.8-6.8); NEUTROPHILS % (AUTO) 73 % (42-75); PLATELET COUNT 574 x10^3/uL (130-400); RED BLOOD COUNT 2.58 x10^6/uL (4.38-5.82); RED CELL DISTRIBUTION WIDTH 15.8 % (9.4-14.8)
[2019-01-06 05:42] LABS: CHLORIDE 111 mmol/L (98-107)
[2019-01-06] MEDS: LEVOTHYROXINE 25 MCG TABLET PO SCH (05:51)
[2019-01-06] MEDS: CARVEDILOL 12.5 MG TABLET PO SCH ×2 (05:51→16:51)
[2019-01-06 06:05] LABS: ALANINE AMINOTRANSFERASE 14 U/L (12-78); ALBUMIN 2.1 g/dL (3.4-5.0); ALKALINE PHOSPHATASE 109 U/L (45-117); ANION GAP 6 mmol/L (5-15); BILIRUBIN,TOTAL 0.4 mg/dL (0.2-1.0)
[2019-01-06] MEDS: ASPIRIN 81 MG TABLET EC PO SCH (08:55)
[2019-01-06] MEDS: LISINOPRIL 5 MG TABLET PO SCH (08:55)
[2019-01-06] MEDS: PRASUGREL 10 MG TABLET PO SCH (08:55)
[2019-01-06] MEDS: INSULIN LISPRO 100 UNITS/ML, PEN SQ-INSULIN SCH ×4 (08:55→21:46)
[2019-01-06] MEDS: AMLODIPINE 5 MG TABLET PO SCH (08:55)
[2019-01-06] MEDS: SENNA/DOCUSATE TABLET PO SCH (08:56)
[2019-01-06 09:17] VITALS: BP 154/67
[2019-01-06] MEDS: HYDROXYUREA 500 MG CAPSULE PO SCH (12:43)
[2019-01-06 16:42] VITALS: BP 166/72
[2019-01-06 18:52] VITALS: BP 144/58
[2019-01-06] MEDS: ATORVASTATIN 80 MG TABLET PO SCH (21:44)
[2019-01-06] MEDS: INSULIN GLARGINE 100 UNITS/ML, PEN SQ-INSULIN SCH (21:45)
[2019-01-07 03:51] VITALS: BP 181/84
[2019-01-07] MEDS: HEPARIN 5,000 UNITS/ML, 1ML SQ SCH ×3 (03:53→20:55)
[2019-01-07] MEDS: hydrALAzine 20 MG/ML, 1ML IV PRN (03:57)
[2019-01-07 05:19] VITALS: BP 161/82
[2019-01-07 05:21] LABS: BASOPHILS # (AUTO) 0.08 x10^3/uL (0-0.1); BASOPHILS % (AUTO) 1 % (0-1); EOSINOPHILS # (AUTO) 0.32 x10^3/uL (0-0.4); EOSINOPHILS % (AUTO) 6 % (1-7); LYMPHOCYTES % (AUTO) 26 % (22-44); MD NO; MEAN CORPUSCULAR HEMOGLOBIN 35.4 pg (27.5-34.5); MEAN CORPUSCULAR HGB CONC 33.4 g/dL (33.2-36.2); MEAN CORPUSCULAR VOLUME 105.8 fL (81-97); MEAN PLATELET VOLUME 7.8 fL (7.4-10.4); MONOCYTES # (AUTO) 0.48 x10^3/uL (0.2-0.8); MONOCYTES % (AUTO) 8 % (2-9); NEUTROPHILS # (AUTO) 3.48 x10^3/uL (1.8-6.8); NEUTROPHILS % (AUTO) 59 % (42-75); PLATELET COUNT 556 x10^3/uL (130-400); RED BLOOD COUNT 2.69 x10^6/uL (4.38-5.82)
[2019-01-07] MEDS: LEVOTHYROXINE 25 MCG TABLET PO SCH (05:25)
[2019-01-07] MEDS: CARVEDILOL 12.5 MG TABLET PO SCH ×2 (05:25→17:58)
[2019-01-07 05:28] LABS: CHLORIDE 109 mmol/L (98-107)
[2019-01-07 05:34] LABS: ANION GAP 9 mmol/L (5-15); CALCIUM 8.1 mg/dL (8.5-10.1); CREATININE 2.13 mg/dL (0.7-1.3)
[2019-01-07] MEDS: INSULIN LISPRO 100 UNITS/ML, PEN SQ-INSULIN SCH ×4 (07:00→20:56)
[2019-01-07 09:21] VITALS: BP 144/64
[2019-01-07] MEDS: PRASUGREL 10 MG TABLET PO SCH (09:23)
[2019-01-07] MEDS: LISINOPRIL 5 MG TABLET PO SCH (09:23)
[2019-01-07] MEDS: AMLODIPINE 5 MG TABLET PO SCH ×2 (09:23→20:56)
[2019-01-07] MEDS: SENNA/DOCUSATE TABLET PO SCH (09:23)
[2019-01-07] MEDS: ASPIRIN 81 MG TABLET EC PO SCH (09:23)
[2019-01-07] MEDS: HYDROXYUREA 500 MG CAPSULE PO SCH (12:36)
[2019-01-07 14:49] VITALS: BP 163/74
[2019-01-07 20:02] VITALS: BP 163/72
[2019-01-07] MEDS: ATORVASTATIN 80 MG TABLET PO SCH (20:55)
[2019-01-07] MEDS: INSULIN GLARGINE 100 UNITS/ML, PEN SQ-INSULIN SCH (20:57)
[2019-01-08 00:31] VITALS: BP 161/73
[2019-01-08] MEDS: HEPARIN 5,000 UNITS/ML, 1ML SQ SCH ×2 (04:36→13:13)
[2019-01-08] MEDS: CARVEDILOL 12.5 MG TABLET PO SCH (05:38)
[2019-01-08] MEDS: LEVOTHYROXINE 25 MCG TABLET PO SCH (05:38)
[2019-01-08 06:33] LABS: ANION GAP 5 mmol/L (5-15); CALCIUM 8.3 mg/dL (8.5-10.1); CHLORIDE 111 mmol/L (98-107); CREATININE 2.11 mg/dL (0.7-1.3)
[2019-01-08] MEDS: INSULIN LISPRO 100 UNITS/ML, PEN SQ-INSULIN SCH ×2 (07:00→11:00)
[2019-01-08 08:09] VITALS: BP 153/73
[2019-01-08] MEDS: PRASUGREL 10 MG TABLET PO SCH (09:00)
[2019-01-08] MEDS: AMLODIPINE 5 MG TABLET PO SCH (10:16)
[2019-01-08] MEDS: ASPIRIN 81 MG TABLET EC PO SCH (10:17)
[2019-01-08] MEDS: SENNA/DOCUSATE TABLET PO SCH (10:18)
[2019-01-08] MEDS: hydrALAzine 20 MG/ML, 1ML IV PRN (13:13)
[2019-01-08 13:47] VITALS: BP 177/76
[2019-01-08] MEDS: HYDROXYUREA 500 MG CAPSULE PO SCH (14:01)
[2019-01-08] MEDS ORDERED: AMLO-150 PO (16:25)
[2019-01-08] MEDS ORDERED: CARV12.543 PO (16:25)
== END 2019-01-08 17:58 | disposition home or self-care (01) | DRG 280 ==
LOC: ED 01:24 → EDIP 01:29 → ED 02:12 → CCU 02:33 → 5SO 19:04
PROVIDERS: ADMIT Family Medicine; ATTEND Family Medicine
DX: I21.4 Non-ST elevation (NSTEMI) myocardial infarction (principal); I50.43 Acute on chronic combined systolic (congestive) and diastolic (congestive) heart failure; I16.1 Hypertensive emergency; D47.1 Chronic myeloproliferative disease; N17.9 Acute kidney failure, unspecified; I13.0 Hypertensive heart and chronic kidney disease with heart failure and stage 1 through stage 4 chronic kidney disease, or unspecified chronic kidney disease; J44.9 Chronic obstructive pulmonary disease, unspecified; I25.5 Ischemic cardiomyopathy; E03.9 Hypothyroidism, unspecified; E11.22 Type 2 diabetes mellitus with diabetic chronic kidney disease; E78.00 Pure hypercholesterolemia, unspecified; E78.5 Hyperlipidemia, unspecified; H11.31 Conjunctival hemorrhage, right eye; I25.10 Atherosclerotic heart disease of native coronary artery without angina pectoris; N18.9 Chronic kidney disease, unspecified; Z72.0 Tobacco use; Z79.4 Long term (current) use of insulin; Z83.3 Family history of diabetes mellitus; Z86.73 Personal history of transient ischemic attack (TIA), and cerebral infarction without residual deficits; Z71.6 Tobacco abuse counseling
CPT/HCPCS: 36415; 71045; 80047; 80048; 80053; 80061; 81001; 82436; 82570; 82962; 83036; 83735; 83880; 84100; 84133; 84300; 84443; 84484; 85025; 85520; 85610; 85730; 87081; 96365; 96374; G0378; J0583; J1644; J2250; J3010; J0360; J1815; J7120

== ENCOUNTER 2019-02-12 07:49 | Inpatient (IN) | payer OTHER ==
[~2019-02-12] VITALS: Ht 177.8 cm; Wt 63.1 kg
[~2019-02-12 07:49] MED LIST changes: +AMLO-150 PO; +CARV12.543 PO
[2019-02-12] MEDS ORDERED: NITROGLYCERIN OINT 2%, 1GM TP ONE (08:00)
[2019-02-12] MEDS ORDERED: AZITHROMYCIN 500 MG in SODIUM CHLORIDE 0.9% 250 ML IVPB ONE (08:00)
[2019-02-12] MEDS ORDERED: SODIUM CHLORIDE 0.9% 1,000ML IVBOLUS ONE (08:00)
[2019-02-12] MEDS ORDERED: SODIUM CHLORIDE FLUSH 10ML SYR IVF ONE (08:00)
--- NOTE | 2019-02-12 08:05 | NUR ---
Patient arrives with [facility] from [facility] with respiratory failure, elevated troponin, elevated blood pressure and pneumonia. Patient is alert and oriented x4 answering questions appropriately, speaking in full sentences, on bipap on arrival. Dr. Montague requests patient have bipap removed and replaced with opti flow, RT at bedside to put on opti flow at 40LPM 60% oxygen which patient is tolerating well. Patient was treated with IV rocephin at [facility] prior to arrival, Dr. Montague aware, blood cultures ordered. Patient arrives with IV access x2 as documented. Plan of care discussed with patient, questions answered.
--- NOTE | 2019-02-12 08:09 | NUR ---
Patient with 1/2 inch nitro paste to left chest on arrival, per Dr. Montague order for nitro paste is to leave current paste in place, verbal order read back and verified.
[2019-02-12] MEDS ORDERED: FUROSEMIDE 40 MG/4 ML ONE (08:18)
[2019-02-12 08:25] LABS: BASOPHILS % (AUTO) 1 % (0-1); EOSINOPHILS # (AUTO) 0.12 x10^3/uL (0-0.4); EOSINOPHILS % (AUTO) 1 % (1-7); LYMPHOCYTES # (AUTO) 0.87 x10^3/uL (1-3.4); LYMPHOCYTES % (AUTO) 8 % (22-44); MD NO; MEAN CORPUSCULAR HGB CONC 32.8 g/dL (33.2-36.2); MEAN CORPUSCULAR VOLUME 106.9 fL (81-97); MEAN PLATELET VOLUME 7.6 fL (7.4-10.4); MONOCYTES # (AUTO) 0.24 x10^3/uL (0.2-0.8); MONOCYTES % (AUTO) 2 % (2-9); NEUTROPHILS # (AUTO) 9.26 x10^3/uL (1.8-6.8); NEUTROPHILS % (AUTO) 87 % (42-75); PLATELET COUNT 572 x10^3/uL (130-400); RED BLOOD COUNT 3.09 x10^6/uL (4.38-5.82); RED CELL DISTRIBUTION WIDTH 15.8 % (9.4-14.8)
[2019-02-12 08:30] LABS: ALANINE AMINOTRANSFERASE 31 U/L (12-78); ALBUMIN 2.8 g/dL (3.4-5.0); ANION GAP 7 mmol/L (5-15); CALCIUM 8.3 mg/dL (8.5-10.1); CHLORIDE 110 mmol/L (98-107)
[2019-02-12] MEDS ORDERED: FUROSEMIDE 40 MG/4 ML IV ONE (08:30)
--- NOTE | 2019-02-12 08:33 | NUR ---
DISCUSSED WITH DR LYONS ORDER FOR 1L NS BOLUS. WAITING FOR LACTIC ACID RESULTS PRIOR TO ADMIN. PRIMARY RN UPDATED.
[2019-02-12 08:34] LABS: ALKALINE PHOSPHATASE 122 U/L (45-117); BILIRUBIN,TOTAL 0.3 mg/dL (0.2-1.0)
[2019-02-12 08:36] LABS: TROPONIN I 0.515 ng/mL (0.000-0.045)
--- NOTE | 2019-02-12 09:01 | NUR ---
PT ASKING "FOR SOMETHING TO EAT" DISCUSSED WITH DR LYONS. OK TO REQUEST LOW SODIUM DIET.
--- NOTE | 2019-02-12 10:00 | NUR ---
PT TAKEN OFF OF OPTIFLOW AND PLACED ON NC AT 4L BY RT. PT DOZING INTERMITTENTLY, AROUSES EASILY. SR PER MONITOR. BP CUFF AND PULSE OX IN PLACE. AWAITING FURTHER DISPOSITION.
--- NOTE | 2019-02-12 10:28 | NUR ---
REPORT GIVEN TO SAM CABRERA ON TELE
--- NOTE | 2019-02-12 10:28 | NUR ---
ROOM 521 BED 2
[2019-02-12] MEDS ORDERED: PHARMACY MAY ADJ FOR RENAL FX MC PRN (11:00)
[2019-02-12] MEDS ORDERED: DOCUSATE 100 MG CAPSULE PO PRN (11:00)
[2019-02-12] MEDS ORDERED: ONDANSETRON ODT 4 MG PO PRN (11:00)
[2019-02-12] MEDS ORDERED: morphine SULFATE 10 MG/ML, 1ML IVPush PRN (11:00)
[2019-02-12] MEDS ORDERED: hydrALAzine 20 MG/ML, 1ML IVPush PRN (11:00)
[2019-02-12] MEDS ORDERED: ONDANSETRON 2MG/ML, 2ML IVPush PRN (11:00)
[2019-02-12] MEDS ORDERED: ACETAMINOPHEN 325 MG TABLET PO PRN (11:00)
[2019-02-12] MEDS: AMLODIPINE 5 MG TABLET PO SCH ×2 (11:35→21:16)
[2019-02-12] MEDS: PRASUGREL 10 MG TABLET PO SCH (11:35)
[2019-02-12 11:45] LABS: THYROID STIMULATING HORMONE 3.32 mIU/L (0.358-3.740)
[2019-02-12] MEDS: INSULIN LISPRO 100 UNITS/ML, PEN SQ-INSULIN SCH ×3 (12:08→21:15)
[2019-02-12 12:15] LABS: HEMOGLOBIN A1C 8.9 % (4.2-6.3)
[2019-02-12 12:17] VITALS: BP 175/83
[2019-02-12] MEDS ORDERED: NITROGLYCERIN 0.4 MG BOTTLE (25 TABS) SL PRN (13:30)
[2019-02-12] MEDS ORDERED: NITROGLYCERIN 0.4 MG/SPRAY SL PRN (13:30)
[2019-02-12] MEDS: HEPARIN 5,000 UNITS/ML, 1ML SQ SCH ×2 (14:39→21:15)
[2019-02-12 15:59] VITALS: BP 154/79
[2019-02-12] MEDS: CARVEDILOL 12.5 MG TABLET PO SCH (16:53)
[2019-02-12] MEDS ORDERED: FUROSEMIDE 40 MG/4 ML IV SCH (17:00)
[2019-02-12] MEDS: INSULIN GLARGINE 100 UNITS/ML, PEN SQ-INSULIN SCH (21:15)
[2019-02-12] MEDS: ATORVASTATIN 80 MG TABLET PO SCH (21:16)
[2019-02-12 21:54] VITALS: BP 131/60
[2019-02-12 21:58] LABS: TROPONIN I 0.755 ng/mL (0.000-0.045)
[2019-02-13 02:45] VITALS: BP 162/70
[2019-02-13] MEDS: HEPARIN 5,000 UNITS/ML, 1ML SQ SCH ×3 (04:08→20:53)
[2019-02-13 04:49] LABS: ANION GAP 8 mmol/L (5-15); CALCIUM 8.2 mg/dL (8.5-10.1); CHLORIDE 110 mmol/L (98-107)
[2019-02-13 04:54] LABS: CHOL/HDL RATIO 3.7; CHOLESTEROL, TOTAL 192 mg/dL (140-239); HDL CHOL % 27 % (26-37); HDL CHOLESTEROL (DIRECT) 52 mg/dL (40-60); LDL CHOLESTEROL,CALCULATED 111 mg/dL (54-169); LDL/HDL RATIO 2.1 (0.5-3.0); TRIGLYCERIDES 143 mg/dL (50-200); VLDL CHOLESTEROL 29 mg/dL (0-25)
[2019-02-13 04:59] LABS: MEAN CORPUSCULAR HEMOGLOBIN 35.7 pg (27.5-34.5); MEAN CORPUSCULAR VOLUME 108.1 fL (81-97); MEAN PLATELET VOLUME 7.9 fL (7.4-10.4); PLATELET COUNT 518 x10^3/uL (130-400); RED BLOOD COUNT 2.91 x10^6/uL (4.38-5.82); RED CELL DISTRIBUTION WIDTH 15.7 % (9.4-14.8)
[2019-02-13] MEDS: CARVEDILOL 12.5 MG TABLET PO SCH ×2 (05:33→17:33)
[2019-02-13] MEDS: LEVOTHYROXINE 25 MCG TABLET PO SCH (05:33)
[2019-02-13 05:45] LABS: BASOPHILS # (AUTO) 0.06 x10^3/uL (0-0.1); BASOPHILS % (AUTO) 1 % (0-1); EOSINOPHILS # (AUTO) 0.31 x10^3/uL (0-0.4); EOSINOPHILS % (AUTO) 4 % (1-7); LYMPHOCYTES # (AUTO) 1.82 x10^3/uL (1-3.4); LYMPHOCYTES % (AUTO) 25 % (22-44); MD SCAN; MONOCYTES % (AUTO) 7 % (2-9); NEUTROPHILS # (AUTO) 4.55 x10^3/uL (1.8-6.8); NEUTROPHILS % (AUTO) 63 % (42-75)
[2019-02-13] MEDS: INSULIN LISPRO 100 UNITS/ML, PEN SQ-INSULIN SCH ×4 (07:00→20:52)
[2019-02-13 07:25] VITALS: BP 128/67
[2019-02-13] MEDS: FUROSEMIDE 40 MG/4 ML IV SCH (08:16)
[2019-02-13] MEDS: AMLODIPINE 5 MG TABLET PO SCH ×2 (08:17→20:53)
[2019-02-13] MEDS: ASPIRIN 81 MG TABLET EC PO SCH (08:17)
[2019-02-13] MEDS: PRASUGREL 10 MG TABLET PO SCH (08:17)
[2019-02-13] MEDS ORDERED: REGADENOSON 0.4 MG/5 ML SYRINGE ONE (10:10)
[2019-02-13] MEDS: HYDROXYUREA 500 MG CAPSULE PO SCH (11:57)
[2019-02-13 12:50] VITALS: BP 152/65
[2019-02-13 20:03] VITALS: BP 155/84
[2019-02-13] MEDS: INSULIN GLARGINE 100 UNITS/ML, PEN SQ-INSULIN SCH (20:52)
[2019-02-13] MEDS: ATORVASTATIN 80 MG TABLET PO SCH (20:53)
[2019-02-14] MEDS: HEPARIN 5,000 UNITS/ML, 1ML SQ SCH (02:57)
[2019-02-14 03:03] VITALS: BP 151/74
[2019-02-14 05:43] LABS: ANION GAP 6 mmol/L (5-15); CALCIUM 8.2 mg/dL (8.5-10.1); CHLORIDE 112 mmol/L (98-107)
[2019-02-14 05:45] LABS: CREATININE 2.41 mg/dL (0.7-1.3)
[2019-02-14] MEDS: LEVOTHYROXINE 25 MCG TABLET PO SCH (05:54)
[2019-02-14] MEDS: CARVEDILOL 12.5 MG TABLET PO SCH (05:54)
[2019-02-14] MEDS: INSULIN LISPRO 100 UNITS/ML, PEN SQ-INSULIN SCH (07:00)
[2019-02-14 07:53] VITALS: BP 145/67
[2019-02-14] MEDS: ASPIRIN 81 MG TABLET EC PO SCH (08:22)
[2019-02-14] MEDS: AMLODIPINE 5 MG TABLET PO SCH (08:22)
[2019-02-14] MEDS: PRASUGREL 10 MG TABLET PO SCH (08:23)
[2019-02-14] MEDS ORDERED: NITR0.4T28 SL (08:31)
[2019-02-14] MEDS ORDERED: HYDR-3341 PO (08:31)
[2019-02-14] MEDS: HYDROXYUREA 500 MG CAPSULE PO SCH (08:34)
[2019-02-14] MEDS ORDERED: POTA10TA11 PO (08:34)
[2019-02-14] MEDS: FUROSEMIDE 40 MG/4 ML IV SCH (08:39)
== END 2019-02-14 11:35 | disposition home or self-care (01) | DRG 291 ==
LOC: ED 10:15 → 5SO 10:32
PROVIDERS: ADMIT Internal Medicine; ATTEND Internal Medicine
DX: I13.0 Hypertensive heart and chronic kidney disease with heart failure and stage 1 through stage 4 chronic kidney disease, or unspecified chronic kidney disease (principal); J96.01 Acute respiratory failure with hypoxia; I50.23 Acute on chronic systolic (congestive) heart failure; D47.1 Chronic myeloproliferative disease; I50.1 Left ventricular failure, unspecified; J44.0 Chronic obstructive pulmonary disease with (acute) lower respiratory infection; Z66 Do not resuscitate; D53.9 Nutritional anemia, unspecified; I36.1 Nonrheumatic tricuspid (valve) insufficiency; E03.9 Hypothyroidism, unspecified; E11.21 Type 2 diabetes mellitus with diabetic nephropathy; E11.22 Type 2 diabetes mellitus with diabetic chronic kidney disease; E78.00 Pure hypercholesterolemia, unspecified; F17.200 Nicotine dependence, unspecified, uncomplicated; I25.10 Atherosclerotic heart disease of native coronary artery without angina pectoris; I25.5 Ischemic cardiomyopathy; N18.3 Chronic kidney disease, stage 3 (moderate); Z79.4 Long term (current) use of insulin; I25.2 Old myocardial infarction; Z86.73 Personal history of transient ischemic attack (TIA), and cerebral infarction without residual deficits; Z71.6 Tobacco abuse counseling
CPT/HCPCS: 36415; 71045; 78452; 80048; 80053; 80061; 82607; 82962; 83036; 83605; 83735; 83880; 84145; 84443; 84484; 85025; 87040; 87205; 93005; 93017; 93306; 93970; 96365; 96366; G0378; J0456; J1644; J1940; J2785; A9502; C9898; J1815; J7050

== ENCOUNTER 2019-08-23 08:55 | Outpatient (CLI) | payer MEDICARE, OTHER ==
[~2019-08-23 08:55] MED LIST changes: -DOXY100T10 PO; +DOXY100T23 PO; +HYDR-3341 PO; +NITR0.4T28 SL; +POTA10TA11 PO
== END 2019-08-23 23:59 | disposition home or self-care (01) ==
LOC: CFH 08:55
PROVIDERS: ATTEND Surgery
DX: I70.213 Atherosclerosis of native arteries of extremities with intermittent claudication, bilateral legs (principal)
CPT/HCPCS: 82565

== ENCOUNTER 2019-09-02 13:22 | Outpatient (CLI) | payer MEDICARE | END 2019-09-02 23:59 | disposition home or self-care (01) | LOC: CFH 13:22 | PROVIDERS: ATTEND Surgery | DX: E11.9 Type 2 diabetes mellitus without complications (principal) | CPT/HCPCS: 82565 ==

== ENCOUNTER 2020-05-27 08:00 | Outpatient (CLI) | payer MEDICARE, OTHER ==
[~2020-05-27 08:00] MED LIST changes: +FERR-4 PO; +HEPARIN 1,000 UNITS/ML, 10ML ONE; +LIDOCAINE 1%, 20ML ONE; +PAPAVERINE 30 MG/ML, 2ML ONE; +PROTAMINE SULFATE 10 MG/ML, 5ML ONE
[2020-05-27] MEDS ORDERED: FENTANYL PF 250 MCG/5ML ONE (09:41)
== END 2020-05-27 23:59 | disposition home or self-care (01) ==
LOC: STAR 08:00 → EDSTATUS 10:00 → STAR 23:59
PROVIDERS: ATTEND Surgery
DX: Z02.9 Encounter for administrative examinations, unspecified (principal)
CPT/HCPCS: J1644; J2720; J3010; J2440

== ENCOUNTER 2020-05-31 12:10 | Inpatient (IN) | payer MEDICARE, OTHER ==
[~2020-05-31] VITALS: Ht 177.8 cm; Wt 63.8 kg
[~2020-05-31 12:10] MED LIST changes: +CEFAZOLIN 1,000 MG ONE; -HEPARIN 1,000 UNITS/ML, 10ML ONE; +LABETALOL 5MG/ML, 20ML ONE; -LIDOCAINE 1%, 20ML ONE; -PAPAVERINE 30 MG/ML, 2ML ONE; +PHENYLEPHRINE 10 MG/ML ONE; -PROTAMINE SULFATE 10 MG/ML, 5ML ONE
[2020-05-31] MEDS ORDERED: CHLORHEXIDINE 15 ML UDC MM ONE (13:00)
[2020-05-31] MEDS ORDERED: LEVO25TA68 PO (13:04)
[2020-05-31] MEDS ORDERED: CARV6.252 PO (13:04)
[2020-05-31] MEDS ORDERED: ASPIRIN PO (13:04)
[2020-05-31] MEDS ORDERED: ROSU40TA22 PO (13:04)
[2020-05-31] MEDS ORDERED: PRAS10TA9 PO (13:04)
[2020-05-31] MEDS ORDERED: LEVO25TA4 PO (13:04)
[2020-05-31] MEDS ORDERED: HYDR500C3 PO (13:04)
[2020-05-31 13:07] VITALS: BP 162/85
[2020-05-31] MEDS ORDERED: LIDOCAINE-MPF 1%, 2ML ONE (13:11)
[2020-05-31 13:17] LABS: BASOPHILS % (AUTO) 1 % (0-1); EOSINOPHILS % (AUTO) 4 % (1-7); LYMPHOCYTES % (AUTO) 20 % (22-44); MEAN CORPUSCULAR HEMOGLOBIN 33.8 pg (27.5-34.5); MEAN CORPUSCULAR HGB CONC 32.7 g/dL (33.2-36.2); MEAN PLATELET VOLUME 7.5 fL (7.4-10.4); MONOCYTES % (AUTO) 9 % (2-9); NEUTROPHILS % (AUTO) 66 % (42-75); PLATELET COUNT 446 x10^3/uL (130-400); RED BLOOD COUNT 3.57 x10^6/uL (4.38-5.82)
[2020-05-31] MEDS ORDERED: LANTUS SLIDING SCALE SQ (13:24)
[2020-05-31] MEDS ORDERED: HUMALOG SLIDING (13:24)
[2020-05-31] MEDS ORDERED: PAPAVERINE 30 MG/ML, 2ML ONE (13:28)
[2020-05-31] MEDS ORDERED: PROTAMINE SULFATE 10 MG/ML, 5ML ONE (13:28)
[2020-05-31] MEDS ORDERED: LIDOCAINE 1%, 20ML ONE (13:29)
[2020-05-31] MEDS ORDERED: HEPARIN 1,000 UNITS/ML, 10ML ONE (13:29)
[2020-05-31] MEDS ORDERED: LIDOCAINE-MPF 1%, 2ML INFIL ONE (13:30)
[2020-05-31 13:32] LABS: CHLORIDE 104 mmol/L (98-107)
[2020-05-31] MEDS: LACTATED RINGERS 1,000 ML IV SCH ×2 (13:32→13:44)
[2020-05-31 13:33] LABS: MD NO
[2020-05-31 13:42] LABS: ALANINE AMINOTRANSFERASE 48 U/L (12-78); ALBUMIN 4.2 g/dL (3.4-5.0); ALKALINE PHOSPHATASE 113 U/L (45-117); ANION GAP 8 mmol/L (5-15); BILIRUBIN,TOTAL 0.3 mg/dL (0.2-1.0); CALCIUM 10.2 mg/dL (8.5-10.1); TOTAL PROTEIN 8.2 g/dL (6.4-8.2)
[2020-05-31] MEDS ORDERED: FENTANYL PF 250 MCG/5ML ONE (14:49)
[2020-05-31] MEDS ORDERED: PROPOFOL 50 ML ONE (14:51)
[2020-05-31] MEDS ORDERED: DIPHENHYDRAMINE 50 MG/ML, 1ML IVPush PRN (16:30)
[2020-05-31] MEDS ORDERED: ACETAMINOPHEN 325 MG TABLET PO PRN (16:30)
[2020-05-31] MEDS ORDERED: EPHEDRINE 50 MG/ML, 1ML IM PRN (16:30)
[2020-05-31] MEDS ORDERED: LABETALOL 5MG/ML, 20ML IV PRN (16:30)
[2020-05-31] MEDS ORDERED: ONDANSETRON 2MG/ML, 2ML IVPush PRN (16:30)
[2020-05-31] MEDS ORDERED: PROMETHAZINE 25 MG/ML, 1ML IVPush PRN (16:30)
[2020-05-31] MEDS ORDERED: PROMETHAZINE 12.5 MG SUPP PR PRN (16:30)
[2020-05-31] MEDS ORDERED: DIAZEPAM 5 MG/ML, 2ML IVPush PRN (16:30)
[2020-05-31] MEDS ORDERED: EPHEDRINE 50 MG/ML, 1ML IVPush PRN (16:30)
[2020-05-31] MEDS ORDERED: PROPOFOL 10 MG/ML, 20ML ONE (17:49)
[2020-05-31] MEDS ORDERED: SUCCINYLCHOLINE 20 MG/ML, 10ML ONE (17:49)
[2020-05-31] MEDS ORDERED: THROMBIN 20,000 UNIT VIAL TP ONE (18:28)
[2020-05-31] MEDS: hydrALAzine 20 MG/ML, 1ML IV PRN ×2 (19:30→20:05)
[2020-05-31] MEDS ORDERED: FENTANYL PF 100 MCG/2ML ONE (19:44)
[2020-05-31] MEDS: FENTANYL PF 100 MCG/2ML IV PRN ×4 (19:45→20:25)
[2020-05-31] MEDS ORDERED: OXYcodone 5 MG/5 ML ORAL.SOL UDC ONE ×2 (20:29→21:15)
[2020-05-31] MEDS ORDERED: HYDROmorphone 1 MG/ML, 1ML INJ ONE (20:29)
[2020-05-31] MEDS: HYDROmorphone 1 MG/ML, 1ML INJ IVPush PRN ×4 (20:45→21:21)
[2020-05-31] MEDS: OXYcodone 5 MG/5 ML ORAL.SOL UDC PO PRN ×2 (21:00→21:16)
[2020-05-31] MEDS ORDERED: DIAZEPAM 5 MG/ML, 2ML ONE (21:45)
[2020-05-31] MEDS ORDERED: HEPARIN 5,000 UNITS/ML, 1ML SQ SCH (23:00)
[2020-05-31] MEDS ORDERED: ENTER SLIDING SCALE INSULIN IF ORDERED XX PRN (23:00)
[2020-05-31] MEDS ORDERED: HYDROcodone/APAP 5/325 TABLET PO PRN (23:00)
[2020-05-31] MEDS ORDERED: morphine SULFATE 10 MG/ML, 1ML ONE (23:10)
[2020-05-31] MEDS: morphine SULFATE 10 MG/ML, 1ML IVPush PRN (23:14)
[2020-06-01] MEDS: morphine SULFATE 10 MG/ML, 1ML IVPush PRN ×5 (00:38→19:47)
[2020-06-01] MEDS: ONDANSETRON 2MG/ML, 2ML IV PRN ×4 (01:18→21:28)
[2020-06-01 03:06] VITALS: BP_SYST 107; BP_SYST 187; BP_DIAS 55; BP_DIAS 81
[2020-06-01 03:28] VITALS: BP 213/90
[2020-06-01] MEDS: ENALAPRILAT 1.25 MG/ML, 2ML IV PRN ×3 (03:29→10:32)
[2020-06-01 04:31] VITALS: BP 174/69
[2020-06-01 05:22] VITALS: BP 195/83
[2020-06-01] MEDS: LEVOTHYROXINE 25 MCG TABLET PO SCH (05:44)
[2020-06-01] MEDS: CARVEDILOL 25 MG TABLET PO SCH ×2 (05:44→18:49)
[2020-06-01] MEDS: HEPARIN 5,000 UNITS/ML, 1ML SQ SCH ×3 (05:45→21:21)
[2020-06-01] MEDS ORDERED: CARVEDILOL 6.25 MG TABLET PO SCH (06:00)
[2020-06-01] MEDS ORDERED: hydrALAzine 20 MG/ML, 1ML IV ONE (07:00)
[2020-06-01] MEDS: INSULIN REGULAR, HUMAN 100 UNITS/ML, 3ML MEDIUM DOSE SS SQ-INSULIN SCH ×4 (08:47→21:22)
[2020-06-01] MEDS ORDERED: HYDROXYUREA 500 MG CAPSULE PO SCH (09:00)
[2020-06-01] MEDS: SODIUM CHLORIDE FLUSH 10ML SYR IVF SCH ×4 (10:33→21:22)
[2020-06-01] MEDS: PRASUGREL 10 MG TABLET PO SCH (10:36)
[2020-06-01] MEDS: ASPIRIN 81 MG TABLET CHEW PO SCH (10:36)
[2020-06-01] MEDS ORDERED: LABETALOL 5MG/ML, 20ML IVPush PRN (13:00)
[2020-06-01] MEDS ORDERED: ATORVASTATIN 80 MG TABLET PO SCH (21:00)
[2020-06-01] MEDS: ATORVASTATIN 80 MG TABLET PO SCH (21:22)
[2020-06-02] MEDS ORDERED: ASPIRIN 325 MG TABLET EC ONE (03:12)
[2020-06-02] MEDS ORDERED: ASPIRIN 325 MG TABLET EC PO PRN (03:30)
[2020-06-02] MEDS: CARVEDILOL 25 MG TABLET PO SCH ×2 (04:26→17:44)
[2020-06-02] MEDS: HEPARIN 5,000 UNITS/ML, 1ML SQ SCH ×3 (04:27→21:02)
[2020-06-02] MEDS: LEVOTHYROXINE 25 MCG TABLET PO SCH (04:27)
[2020-06-02 04:44] LABS: ANION GAP 5 mmol/L (5-15); CALCIUM 9.3 mg/dL (8.5-10.1); CHLORIDE 107 mmol/L (98-107)
[2020-06-02] MEDS ORDERED: ACETAMINOPHEN 325 MG TABLET ONE (07:27)
[2020-06-02] MEDS ORDERED: ZIPRASIDONE 20 MG INJ IM ONE (07:57)
[2020-06-02] MEDS ORDERED: ZIPRASIDONE 20 MG INJ IM PRN (08:00)
[2020-06-02] MEDS: PRASUGREL 10 MG TABLET PO SCH (08:49)
[2020-06-02] MEDS: HYDROXYUREA 500 MG CAPSULE PO SCH (08:50)
[2020-06-02] MEDS: INSULIN REGULAR, HUMAN 100 UNITS/ML, 3ML MEDIUM DOSE SS SQ-INSULIN SCH ×4 (08:52→20:53)
[2020-06-02] MEDS: ASPIRIN 81 MG TABLET CHEW PO SCH (08:53)
[2020-06-02] MEDS: SODIUM CHLORIDE FLUSH 10ML SYR IVF SCH ×2 (08:53→21:02)
[2020-06-02] MEDS: ACETAMINOPHEN 325 MG TABLET PO PRN ×2 (08:56→17:44)
[2020-06-02] MEDS ORDERED: INSULIN GLARGINE 100 UNITS/ML, PEN SQ-INSULIN ONE (12:30)
[2020-06-02] MEDS: ATORVASTATIN 80 MG TABLET PO SCH (21:01)
[2020-06-02] MEDS: INSULIN GLARGINE 100 UNITS/ML, PEN SQ-INSULIN SCH (21:02)
[2020-06-02 21:10] VITALS: BP 127/49
[2020-06-02] MEDS ORDERED: MELATONIN 3 MG TABLET PO PRN (23:00)
[2020-06-03 00:50] VITALS: BP 132/55
[2020-06-03] MEDS: ACETAMINOPHEN 325 MG TABLET PO PRN (00:50)
[2020-06-03 05:34] VITALS: BP 157/63
[2020-06-03] MEDS: LEVOTHYROXINE 25 MCG TABLET PO SCH (05:35)
[2020-06-03] MEDS: CARVEDILOL 25 MG TABLET PO SCH (05:35)
[2020-06-03] MEDS: HEPARIN 5,000 UNITS/ML, 1ML SQ SCH ×2 (05:36→13:22)
[2020-06-03 08:12] VITALS: BP 132/60
[2020-06-03] MEDS: INSULIN REGULAR, HUMAN 100 UNITS/ML, 3ML MEDIUM DOSE SS SQ-INSULIN SCH ×2 (08:25→11:41)
[2020-06-03] MEDS: ASPIRIN 81 MG TABLET CHEW PO SCH (08:26)
[2020-06-03] MEDS: INSULIN GLARGINE 100 UNITS/ML, PEN SQ-INSULIN SCH (08:26)
[2020-06-03] MEDS: PRASUGREL 10 MG TABLET PO SCH (08:26)
[2020-06-03] MEDS: HYDROXYUREA 500 MG CAPSULE PO SCH (08:27)
[2020-06-03] MEDS: SODIUM CHLORIDE FLUSH 10ML SYR IVF SCH (08:28)
[2020-06-03 12:46] VITALS: BP 134/65
== END 2020-06-03 16:00 | disposition left against medical advice (07) | DRG 38 ==
LOC: ORIP 12:10 → 4NE 22:36 → CCU 06-01 08:03
PROVIDERS: ADMIT Surgery; ATTEND Internal Medicine
PROC: 03UK0KZ Supplement Right Internal Carotid Artery with Nonautologous Tissue Substitute, Open Approach (ICD-10-PCS; 2020-05-31)
PROC: 03CK0ZZ Extirpation of Matter from Right Internal Carotid Artery, Open Approach (ICD-10-PCS; principal; 2020-05-31 15:30)
DX: I65.23 Occlusion and stenosis of bilateral carotid arteries (principal); D47.1 Chronic myeloproliferative disease; I13.0 Hypertensive heart and chronic kidney disease with heart failure and stage 1 through stage 4 chronic kidney disease, or unspecified chronic kidney disease; I16.1 Hypertensive emergency; I50.42 Chronic combined systolic (congestive) and diastolic (congestive) heart failure; D53.9 Nutritional anemia, unspecified; E03.9 Hypothyroidism, unspecified; E11.22 Type 2 diabetes mellitus with diabetic chronic kidney disease; E11.51 Type 2 diabetes mellitus with diabetic peripheral angiopathy without gangrene; E11.65 Type 2 diabetes mellitus with hyperglycemia; E78.5 Hyperlipidemia, unspecified; F41.9 Anxiety disorder, unspecified; G47.33 Obstructive sleep apnea (adult) (pediatric); I25.10 Atherosclerotic heart disease of native coronary artery without angina pectoris; I25.2 Old myocardial infarction; I25.5 Ischemic cardiomyopathy; J44.9 Chronic obstructive pulmonary disease, unspecified; N18.30 Chronic kidney disease, stage 3 unspecified; F17.210 Nicotine dependence, cigarettes, uncomplicated; Z79.4 Long term (current) use of insulin; Z86.73 Personal history of transient ischemic attack (TIA), and cerebral infarction without residual deficits; I48.91 Unspecified atrial fibrillation; Z20.828 Contact with and (suspected) exposure to other viral communicable diseases
CPT/HCPCS: 36415; 70450; 71045; 74018; 80048; 80053; 82962; 85025; 86850; 86900; 87081; 87635; 88305; 93005; C1729; G0378; J0690; J1170; J1644; J1815; J2405; J2704; J2720; J3010; J3360; J3486; C1768; J0330; J0360; J2270; J2370; J2440; J7050; J7120

== ENCOUNTER → 2020-10-27 | Outpatient (CLI) | payer MEDICARE ==
[~2020-10-27] MED LIST changes: -ASPI-650 PO; +ASPI325T20 PO; +ASPIRIN PO; +CARV6.252 PO; -CEFAZOLIN 1,000 MG ONE; +ERGO500017 PO; +FERR324T5 PO; +FURO-93 PO; +HUMALOG SLIDING; +HYDR500C3 PO; -LABETALOL 5MG/ML, 20ML ONE; +LANTUS SLIDING SCALE SQ; +LEVO25TA4 PO; +LEVO25TA68 PO; +PANT40TA6 PO; -PHENYLEPHRINE 10 MG/ML ONE; +PRAS10TA9 PO; +ROSU40TA22 PO
[2020-10-27 11:22] LABS: BASOPHILS % (AUTO) 2 % (0-1); EOSINOPHILS % (AUTO) 3 % (1-7); LYMPHOCYTES % (AUTO) 13 % (22-44); MEAN CORPUSCULAR HEMOGLOBIN 38.8 pg (27.5-34.5); MEAN CORPUSCULAR HGB CONC 34.4 g/dL (33.2-36.2); MEAN PLATELET VOLUME 7.6 fL (7.4-10.4); MONOCYTES % (AUTO) 7 % (2-9); NEUTROPHILS % (AUTO) 75 % (42-75); PLATELET COUNT 933 x10^3/uL (130-400); RED BLOOD COUNT 2.22 x10^6/uL (4.38-5.82); RED CELL DISTRIBUTION WIDTH 12.9 % (9.4-14.8)
[2020-10-27 11:32] LABS: CHLORIDE 104 mmol/L (98-107)
[2020-10-27 11:39] LABS: ALANINE AMINOTRANSFERASE 57 U/L (12-78); ALBUMIN 3.7 g/dL (3.4-5.0); ALKALINE PHOSPHATASE 109 U/L (45-117); ANION GAP 7 mmol/L (5-15); BILIRUBIN,TOTAL 0.3 mg/dL (0.2-1.0); CALCIUM 9.3 mg/dL (8.5-10.1); CREATININE 4.04 mg/dL (0.7-1.3)
[2020-10-27 12:54] LABS: MD SCAN
== END | disposition home or self-care (01) ==
LOC: STAR 09:53
PROVIDERS: ATTEND Surgery
DX: Z01.812 Encounter for preprocedural laboratory examination (principal); Z20.822 Contact with and (suspected) exposure to COVID-19
CPT/HCPCS: 36415; 71046; 80053; 85025; 93005; U0003

== ENCOUNTER 2020-10-30 08:00 | Outpatient (CLI) | payer MEDICARE, OTHER ==
[2020-12-01] MEDS ORDERED: HYDR-2214 PO (14:39)
== END 2020-10-30 23:59 | disposition home or self-care (01) ==
LOC: STAR 08:00
PROVIDERS: ATTEND Surgery
DX: Z01.812 Encounter for preprocedural laboratory examination (principal); Z20.822 Contact with and (suspected) exposure to COVID-19
CPT/HCPCS: 36415; 83036

== ENCOUNTER 2021-04-27 12:22 | Outpatient (CLI) | payer MEDICARE, OTHER ==
[~2021-04-27 12:22] MED LIST changes: +HYDR-2214 PO
[2021-04-27 13:15] LABS: BASOPHILS % (AUTO) 1 % (0-1); EOSINOPHILS % (AUTO) 2 % (1-7); LYMPHOCYTES % (AUTO) 29 % (22-44); MEAN CORPUSCULAR HEMOGLOBIN 43.6 pg (27.5-34.5); MEAN PLATELET VOLUME 6.9 fL (7.4-10.4); MONOCYTES % (AUTO) 8 % (2-9); NEUTROPHILS % (AUTO) 60 % (42-75); PLATELET COUNT 373 x10^3/uL (130-400); RED BLOOD COUNT 2.42 x10^6/uL (4.38-5.82)
[2021-04-27 13:30] LABS: ALANINE AMINOTRANSFERASE 84 U/L (12-78); ALBUMIN 3.6 g/dL (3.4-5.0); ANION GAP 2 mmol/L (5-15); CALCIUM 8.8 mg/dL (8.5-10.1); CHLORIDE 104 mmol/L (98-107)
[2021-04-27 13:32] LABS: ALKALINE PHOSPHATASE 105 U/L (45-117); BILIRUBIN,TOTAL 0.4 mg/dL (0.2-1.0); CREATININE 2.17 mg/dL (0.7-1.3); TOTAL PROTEIN 7.3 g/dL (6.4-8.2)
[2021-04-27 13:44] LABS: ANISOCYTOSIS 1+
[2021-04-27 13:45] LABS: <PLATELET ESTIMATE> ADEQUATE; <PLT MORPHOLOGY> NORMAL PLT MORPH
[2021-04-27 13:46] LABS: POLYCHROMASIA 1+
[2021-04-27] MEDS ORDERED: BUPR150T13 PO (14:30)
== END 2021-04-27 23:59 | disposition home or self-care (01) ==
LOC: STAR 12:22
PROVIDERS: ATTEND Surgery
DX: Z01.812 Encounter for preprocedural laboratory examination (principal); Z20.822 Contact with and (suspected) exposure to COVID-19; Q79.1 Other congenital malformations of diaphragm
CPT/HCPCS: 36415; 71046; 80053; 85025; 87635; 93005